=== PATIENT | male | born 1975 ===

== ENCOUNTER 2021-05-30 12:47 | Day surgery (SDC) | payer BC ==
[2021-05-29 08:53] VITALS: BMI 43.5
[~2021-05-30 12:47] MED LIST: ACETAMINOPHEN TAB 500 MG TAB PO PRN; DEXAMETHASONE SOD PHOSPHATE 4 MG/ML 1 ML VIAL IV ONE; HEPARIN SODIUM,PORCINE/PF 5,000 UNIT/0.5 ML SYRINGE SQ PRN; HYDROmorphone 0.5 MG/0.5 ML SYRINGE IVP PRN; LACTATED RINGERS 1,000 ML IV SCH; LIDOCAINE 1% (10MG/ML) FOR IV START INTRADERMA PRN; MIDAZOLAM 2 MG/2 ML VIAL IV PRN; ONDANSETRON 4 MG/2 ML VIAL IVP ONE; Pre Op ABX Message 1 EACH MISC MISCELLANE ONE
--- NOTE | 2021-05-30 14:26 | P.GSHP ---
History of Present Illness H&P Date: 05/30/21 Chief Complaint: Skin lesion anterior chest This is a 45-year-old male who presents today for excision of skin lesion anterior chest. Patient has a 4 x 3 cm skin lesion with chronically inflamed skin which may be related to previous sebaceous cyst of the anterior chest. Past Medical History Additional Past Medical History / Comment(s): skin lesion wall,low testosterone level,low Vit D,states "b/p was running a little high over a year ago now running around 128/80s" History of Any Multi-Drug Resistant Organisms: None Reported Past Surgical History: No Surgical Hx Reported Past Anesthesia/Blood Transfusion Reactions: No Reported Reaction Additional Past Anesthesia/Blood Transfusion Reaction / Comment(s): no hx general anesthesia Smoking Status: Never smoker - Past Family History Father Family Medical History: Coronary Artery Disease (CAD) Additional Family Medical History / Comment(s): CABG and stents Medications and Allergies Home Medications Medication Instructions Recorded Confirmed Type Ascorbic Acid [Vitamin C] 1,000 mg PO DAILY 05/29/21 05/29/21 History Cholecalciferol [Vitamin D3 (25 50 mcg PO DAILY 05/29/21 05/29/21 History Mcg = 1000 Iu)] Testosterone [Androgel 1% Gel 1 dose TOPICAL DAILY 05/29/21 05/30/21 History Packet] Zinc 50 mg PO DAILY 05/29/21 05/29/21 History Allergies Allergy/AdvReac Type Severity Reaction Status Date / Time No Known Allergies Allergy Verified 05/30/21 13:04 Surgical - Exam Vital Signs Temp Pulse Resp BP Pulse Ox 98.6 F 80 16 138/81 99 05/30/21 13:07 05/30/21 13:07 05/30/21 13:07 05/30/21 13:07 05/30/21 13:07 - General well developed, well nourished, no distress - Eyes PERRL - ENT normal pinna - Neck no masses - Respiratory normal expansion - Cardiovascular Rhythm: regular - Abdomen Abdomen: soft, non tender - Integumentary 4 x 3 cm of chronically inflamed skin of the anterior chest wall Assessment and Plan Assessment: Chronically inflamed skin lesion. We'll perform excision.
[2021-05-30] MEDS ORDERED: PROPOFOL 10 MG/ML 20 ML VIAL IV ONE (15:14)
[2021-05-30] MEDS ORDERED: fentaNYL (PF) 50 MCG/ML 2 ML AMP ONE (15:14)
[2021-05-30] MEDS ORDERED: LIDOCAINE 1% INJ 10MG/ML (20 ML MDV) ONE (15:14)
[2021-05-30] MEDS ORDERED: MIDAZOLAM 2 MG/2 ML VIAL ONE (15:14)
[2021-05-30] MEDS ORDERED: LIDOCAINE 2%-EPI 1:100,000 20 ML VIAL SQ ONE (15:45)
--- NOTE | 2021-05-30 15:56 | P.OP ---
Date of Procedure: 05/30/21 Preoperative Diagnosis: Chronically inflamed chest wall skin lesion Postoperative Diagnosis: Defer to pathology Procedure(s) Performed: Excision of chronically inflamed chest wall skin lesion Anesthesia: SASHA Surgeon: Gilberto Connor Estimated Blood Loss (ml): 10 Pathology: other (Chest wall skin lesion) Condition: stable Disposition: PACU Description of Procedure: Patient's placed on the operative table in the supine position. He received general anesthesia his chest was prepped and draped usual sterile fashion. The skin was incised. The lesion appeared to be a chronically inflamed cyst measured approximately 5 cm in diameter. The cyst was then dissected away from the cutaneous tissues. And then in the subcutaneous fat is a 70 cautery. The specimens of pathology. The wound is erythematous. He was achieved using cautery. Fatou closed with interrupted 3-0 nylon sutures. There is a small opening left in the bottom for drainage. Steri-Strips applied. Patient top she will was sent to recovery room stable condition.
[2021-05-30 16:10] VITALS: TEMP 97.5
[2021-05-30 16:24] VITALS: RESP 16
[2021-05-30] MEDS ORDERED: KETOROLAC 15 MG/ML 1 ML VIAL IVP ONE (16:33)
[2021-05-30 17:23] VITALS: BP 138/81; PULSE 83
== END 2021-05-30 17:32 | disposition home or self-care (01) ==
LOC: OR 12:47
PROVIDERS: ATTEND Surgery
DX: L72.0 Epidermal cyst (principal); Z82.49 Family history of ischemic heart disease and other diseases of the circulatory system; Z79.899 Other long term (current) drug therapy; Z95.5 Presence of coronary angioplasty implant and graft
CPT/HCPCS: 88304; 11406; J2250; J1100; J2405; J2001; J3010; J1885; J2704; J1170; J1644

== ENCOUNTER 2021-05-30 19:33 | Emergency (ER) | payer BC ==
[2021-05-30 19:43] VITALS: TEMP 98.1
[2021-05-30] MEDS ORDERED: TRANEXAMIC ACID 1,000 MG in SODIUM CHLORIDE 0.9% 100 ML IVPB ONE (21:15)
[2021-05-30 22:43] VITALS: BP 137/76; PULSE 86; RESP 18
--- NOTE | 2021-05-30 22:53 | ED ---
Wound/Laceration HPI - General Chief Complaint: Wound/Laceration Stated Complaint: Post op bleeding Time Seen by Provider: 05/30/21 20:49 Source: patient Mode of arrival: wheelchair Limitations: no limitations - History of Present Illness Initial Comments: 45 year-old male patient presents for evaluation of bleeding incision. States he had abscess surgically removed from his chest today. Around 7pm this evening he started having blood draining from the wound. States it was dripping down his abdomen and soaked through the dressing so they presented for further evaluation. He denies taking any blood thinning medications. Denies any pain to the area. Denies dizziness or weakness. No other symptoms or concerned. - Related Data Home Medications Medication Instructions Recorded Confirmed Ascorbic Acid [Vitamin C] 1,000 mg PO DAILY 05/29/21 05/29/21 Cholecalciferol [Vitamin D3 (25 50 mcg PO DAILY 05/29/21 05/29/21 Mcg = 1000 Iu)] Testosterone [Androgel 1% Gel 1 dose TOPICAL DAILY 05/29/21 05/30/21 Packet] Zinc 50 mg PO DAILY 05/29/21 05/29/21 Previous Rx's Medication Instructions Recorded Acetaminophen Tab [Tylenol] 650 mg PO Q6H #30 tab 05/30/21 Ibuprofen [Motrin] 600 mg PO Q6HR PRN #40 tab 05/30/21 Allergies Allergy/AdvReac Type Severity Reaction Status Date / Time No Known Allergies Allergy Verified 05/30/21 19:39 Review of Systems ROS Statement: Those systems with pertinent positive or pertinent negative responses have been documented in the HPI. ROS Other: All systems not noted in ROS Statement are negative. Past Medical History Past Medical History: No Reported History Additional Past Medical History / Comment(s): skin lesion wall,low testosterone level,low Vit D,states History of Any Multi-Drug Resistant Organisms: None Reported Past Surgical History: No Surgical Hx Reported Additional Past Surgical History / Comment(s): cyst removed from chest. Past Anesthesia/Blood Transfusion Reactions: No Reported Reaction Additional Past Anesthesia/Blood Transfusion Reaction / Comment(s): no hx general anesthesia Past Psychological History: No Psychological Hx Reported Smoking Status: Never smoker Past Alcohol Use History: Rare Past Drug Use History: None Reported - Past Family History Father Family Medical History: Coronary Artery Disease (CAD) Additional Family Medical History / Comment(s): CABG and stents General Exam Limitations: no limitations General appearance: alert, in no apparent distress, other (This is a well- developed, well-nourished adult male patient in no acute distress. Vital signs upon presentation are temperature 98.1F, pulse 107, respirations 20, blood pressure 147/85, pulse ox 97% on room air.) Respiratory exam: Present: normal lung sounds bilaterally. Absent: respiratory distress, wheezes, rales, rhonchi, stridor Cardiovascular Exam: Present: regular rate, normal rhythm, normal heart sounds. Absent: systolic murmur, diastolic murmur, rubs, gallop, clicks Neurological exam: Present: alert, oriented X3, CN II-XII intact Psychiatric exam: Present: normal affect, normal mood Skin exam: Present: warm, dry, intact, normal color, other (There is a 8 cm incision noted to the central chest with 3 sutures approximating, there is bright red blood oozing from the area. No tenderness.). Absent: rash Course Vital Signs 05/30/21 05/30/21 19:39 22:42 Temperature 98.1 F Pulse Rate 107 H 86 Respiratory 20 18 Rate Blood Pressure 147/85 137/76 O2 Sat by Pulse 97 99 Oximetry Medical Decision Making - Medical Decision Making 45 year-old male patient presents for evaluation of bleeding incision to the chest. Physical exam shows bright red blood oozing from the site. Did soak through two thick dressings while here. He was given IV TXA, bleeding improved. He will be discharged instructed to follow up with his surgeon as soon as possible. Return parameters discussed in detail. He verbalizes understanding and agrees with this plan. Case discussed with my attending Dr. Sanchez. Disposition Clinical Impression: Post-op bleeding Disposition: HOME SELF-CARE Condition: Good Instructions (If sedation given, give patient instructions): Acute Wound Care (ED) Additional Instructions: If bleeding continues apply pressure. Return to the emergency department. Call Dr. Connor in the morning inform him of your visit. Return for any new, worsening, or concerning symptoms. Is patient prescribed a controlled substance at d/c from ED?: No Referrals: Rylan Napier MD [Primary Care Provider] - 1-2 days Time of Disposition: 22:53
== END 2021-05-30 22:58 | disposition home or self-care (01) ==
LOC: EC 19:33
DX: L76.22 Postprocedural hemorrhage of skin and subcutaneous tissue following other procedure (principal); Z82.49 Family history of ischemic heart disease and other diseases of the circulatory system
CPT/HCPCS: 96365; 99283

== ENCOUNTER → 2023-07-21 | Outpatient (CLI) | payer BC ==
--- NOTE | 2023-07-24 12:30 | MR ---
EXAMINATION TYPE: MR shoulder RT wo con DATE OF EXAM: 07/21/2023 COMPARISON: None HISTORY: Right shoulder pain TECHNIQUE: Multiplanar, multisequence imaging of the right shoulder is performed without contrast. FINDINGS: Rotator Cuff: There is a partial through thickness tear involving the anterior fiber insertion of the supraspinatus tendon measuring approximately 6 x 5 mm. Infraspinatus tendon is intact. There appears to be intrasubstance signal compatible with tendinosis of the distal 1 cm of the tendon. Subscapularis tendon demonstrates no evidence of through thickness tear or retraction. Increased sign al at its insertion compatible with tendinosis. Acromioclavicular Joint: Severe hypertrophic arthropathy of the AC joint with mass effect upon the rosario praspinatus tendon muscle compatible with impingement. Spurs are seen extending along the inferior ma rgins of both the clavicle and acromion. There is a small amount of subacromial fluid. Glenohumeral Joint: Mild narrowing of the glenohumeral joint. Inferior glenohumeral ligament is intac t. Trace amount of fluid in the joint space. Labrum: Abnormal signal is seen in the anterior superior labrum compatible with tear. Findings are rosario spicious for SLAP tear. Biceps Tendon: Well situated in the bicipital groove. Tiny amount of fluid surrounds the tendon lior tible with mild tendinosis. Intrasubstance signal is seen along the intracapsular portion of the tend on compatible with tendinopathy. Split tear in the differential diagnosis. Bone marrow signal: Benign cystic change involving the humeral head likely is related to chronic impi ngement. IMPRESSION: 1. Partial through thickness tear anterior fibers of the supraspinatus tendon at its insertion measur ing 6 x 5 mm. 2. Findings compatible with anterior superior labral tear and suspicious for SLAP tear. 3. Moderate tendinosis distal margin\insertion infraspinatus and subscapularis tendons. 4. Increased signal within the intracapsular portion of the biceps tendon compatible with tendinosis. Split tear in the differential diagnosis. 1. 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
--- NOTE | 2023-07-24 12:33 | MR ---
EXAMINATION TYPE: MR knee RT wo con DATE OF EXAM: 07/21/2023 COMPARISON: None HISTORY: Pain right knee TECHNIQUE: Multiplanar, multisequence imaging of the right knee is performed without IV contrast. FINDINGS: MEDIAL MENISCUS: Anterior and posterior horns are intact without tear. LATERAL MENISCUS: Anterior and posterior horns are intact without tear. CRUCIATE LIGAMENTS: The anterior and posterior cruciate ligaments are intact and unremarkable. COLLATERAL LIGAMENTS: The medial collateral ligament and lateral collateral ligament complex are inta ct and unremarkable. EXTENSOR MECHANISM: Visualized quadriceps and patellar tendons are intact. EFFUSION: No significant suprapatellar joint effusion. POPLITEAL CYST: No popliteal/oneal cyst. TRICOMPARTMENT SPACES: Mild narrowing medial tibiofemoral joint space and patellofemoral joint space. CARTILAGE: 3 mm focal cartilaginous defect superior patella pole. Subchondral cystic degenerative sujey nge of the patella. BONE MARROW SIGNAL: No focal abnormal marrow signal is appreciated. OTHER: No additional significant abnormality is appreciated. IMPRESSION: 1. 3 mm focal cartilaginous defect superior patella pole. Subchondral cystic degenerative change of the patella.
== END | disposition home or self-care (01) ==
LOC: RADMRIMAIN 20:45
PROVIDERS: ATTEND Orthopaedic Surgery
DX: M75.111 Incomplete rotator cuff tear or rupture of right shoulder, not specified as traumatic (principal); M67.813 Other specified disorders of tendon, right shoulder; M19.011 Primary osteoarthritis, right shoulder; M17.11 Unilateral primary osteoarthritis, right knee

== ENCOUNTER 2023-10-10 10:09 | Emergency (ER) | payer BC, OTHER ==
[2023-10-10] MEDS ORDERED: LIDOCAINE/EPINEPHR/TETRACAINE 5 ML BOTTLE TOPICAL ONE (10:20)
[2023-10-10 10:27] VITALS: RESP 18; TEMP 97.7
--- NOTE | 2023-10-10 10:45 | ED ---
General Adult HPI - General Chief complaint: Wound/Laceration Stated complaint: Fall, head injury - [facility] Time Seen by Provider: 10/10/23 10:18 Source: patient, RN notes reviewed Mode of arrival: ambulatory Limitations: no limitations - History of Present Illness Initial comments: 47-year-old male with no significant past medical history presents to the emergency department with a chief complaint of scalp laceration. Patient was bending over when he hit his head on a wooden desk anywhere else. He denies loss of consciousness. Denies dizziness, lightheadedness, vision changes or vision, headache, nausea, vomiting. Patient denies anticoagulant use. - Related Data Home Medications Medication Instructions Recorded Confirmed Ascorbic Acid [Vitamin C] 1,000 mg PO DAILY 05/29/21 05/29/21 Cholecalciferol [Vitamin D3 (25 50 mcg PO DAILY 05/29/21 05/29/21 Mcg = 1000 Iu)] Testosterone [Androgel 1% Gel 1 dose TOPICAL DAILY 05/29/21 05/30/21 Packet] Zinc 50 mg PO DAILY 05/29/21 05/29/21 Previous Rx's Medication Instructions Recorded Acetaminophen Tab [Tylenol] 650 mg PO Q6H #30 tab 05/30/21 Ibuprofen [Motrin] 600 mg PO Q6HR PRN #40 tab 05/30/21 Allergies Allergy/AdvReac Type Severity Reaction Status Date / Time No Known Allergies Allergy Verified 10/10/23 10:14 Review of Systems ROS Statement: Those systems with pertinent positive or pertinent negative responses have been documented in the HPI. ROS Other: All systems not noted in ROS Statement are negative. Past Medical History Past Medical History: No Reported History Additional Past Medical History / Comment(s): skin lesion wall,low testosterone level,low Vit D,states History of Any Multi-Drug Resistant Organisms: None Reported Past Surgical History: No Surgical Hx Reported Additional Past Surgical History / Comment(s): cyst removed from chest. Past Anesthesia/Blood Transfusion Reactions: No Reported Reaction Additional Past Anesthesia/Blood Transfusion Reaction / Comment(s): no hx gener al anesthesia Past Psychological History: No Psychological Hx Reported Smoking Status: Never smoker Past Alcohol Use History: Rare Past Drug Use History: None Reported - Past Family History Father Family Medical History: Coronary Artery Disease (CAD) Additional Family Medical History / Comment(s): CABG and stents General Exam - General Exam Comments Initial Comments: General: Alert, in no acute distress Head: atraumatic normocephalic. Eyes PERRL, EOMI intact, mucous membranes moist, right crown area with 4.5 cm laceration Respiratory: Lungs clear to auscultation bilaterally Cardiovascular: rate regular rate and rhythm Abdominal: Soft without guarding or rebound Extremities: Normal inspection with full range of motion and normal capillary refill Neuroogic: alert and oriented 3, CN II-XII intact, able to ambulate with steady gait Skin: warm dry and intact with normal color Limitations: no limitations Course Vital Signs 10/10/23 10/10/23 10:14 11:24 Temperature 97.7 F Pulse Rate 126 H 100 Respiratory 18 18 Rate Blood Pressure 177/110 133/93 O2 Sat by Pulse 97 96 Oximetry Procedures - Laceration Laceration #1 Consent Obtained: verbal consent Indication: laceration Site: scalp (right crown region) Description: linear Depth: simple, single layer Size of Sutures: other (kathryn) Number of Sutures: 8 Complications: pain, bleeding, nerve injury Patient Tolerated Procedure: well, no complications Medical Decision Making - Medical Decision Making Was pt. sent in by a medical professional or institution (Dr. PA, [employer] HEL[employer], urgent care, hospital, or senior care...) When possible be specific @ -[No] Did you speak to anyone other than the patient for history (EMS, parent, family, police, friend...)? What history was obtained from this source @ -[No] Did you review nursing and triage notes (agree or disagree)? Why? @ -[I reviewed and agree with nursing and triage notes] Were old charts reviewed (outside hosp., previous admission, EMS record, old EKG, old radiological studies, urgent care reports/EKG's, senior care records)? Report findings @ -[No old charts were reviewed] Differential Diagnosis (chest pain, altered mental status, abdominal pain women, abdominal pain men, vaginal bleeding, weakness, fever, dyspnea, syncope, headache, dizziness, GI bleed, back pain, seizure, CVA, palpatations, mental health, musculoskeletal)? @ -[not applicable] EKG interpreted by me (3pts min.). @ -[As above] X-rays interpreted by me (1pt min.). @ -[None done] CT interpreted by me (1pt min.). @ -[None done] U/S interpreted by me (1pt. min.). @ -[None done] What testing was considered but not performed or refused? (CT, X-rays, U/S, labs)? Why? @ -[None] What meds were considered but not given or refused? Why? @ -[None] Did you discuss the management of the patient with other professionals (professionals i.e. Dr., PA, [employer] HELPER, lab, RT, psych nurse, social sciences department chair, insurance operations rep, teacher, corporate compliance officer, supportive employment case manager)? Give summary @ -[No] Was smoking cessation discussed for >3mins.? @ -[No] Was critical care preformed (if so, how long)? @ -[No] Were there social determinants of health that impacted care today? How? (Homelessness, low income, unemployed, alcoholism, drug addiction, transportation, low edu. Level, literacy, decrease access to med. care, detention, rehab)? @ -[No] Was there de-escalation of care discussed even if they declined (Discuss DNR or withdrawal of care, Hospice)? DNR status @ -[No] What co-morbidities impacted this encounter? (DM, HTN, Smoking, COPD, CAD, Cancer, CVA, ARF, Chemo, Hep., AIDS, mental health diagnosis, sleep apnea, morbid obesity)? @ -[None] Was patient admitted / discharged? Hospital course, mention meds given and route, prescriptions, significant lab abnormalities, going to OR and other pertinent info. @ Discharged. This is a pleasant 47-year-old male presents to the emergency department with a chief complaint of laceration. Patient had a thorough history and physical exam performed. Physical exam reveals a 4.5 cm laceration to the right scalp region. Patient had 8 kathryn placed which she tolerated well. Return precautions discussed at length. Patient discharged in stable condition. Patient is up-to-date on his tetanus vaccine Case discussed with MELISSA Hernandez who agrees with plan of care Undiagnosed new problem with uncertain prognosis? @ -[No] Drug Therapy requiring intensive monitoring for toxicity (Heparin, Nitro, Insulin, Cardizem)? @ -[No] Were any procedures done? @ -[No] Diagnosis/symptom? @ -Scalp Laceration Acute, or Chronic, or Acute on Chronic? @ -Acute Uncomplicated (without systemic symptoms) or Complicated (systemic symptoms)? @ -Uncomplicated Side effects of treatment? @ -[No] Exacerbation, Progression, or Severe Exacerbation? @ -[No] Poses a threat to life or bodily function? How? (Chest pain, [place], [place], pneumonia, PE, COPD, DKA, ARF, appy, cholecystitis, CVA, Diverticulitis, Homicidal, Suicidal, threat to staff... and all critical care pts) @ -Low likelihood Disposition Clinical Impression: Laceration Disposition: HOME SELF-CARE Condition: Good Instructions (If sedation given, give patient instructions): Laceration (ED), Staple Care (ED) Additional Instructions: Please take Tylenol or Motrin for headache Please return for staple removal in 10-14 days Please return to the nearest emergency department if dizziness, lightheadedness, vision changes or vision loss develop Is patient prescribed a controlled substance at d/c from ED?: No Referrals: Rylan Napier MD [Primary Care Provider] - 1-2 days Time of Disposition: 10:46
[2023-10-10 11:41] VITALS: BP 133/93; PULSE 100
== END 2023-10-10 11:28 | disposition home or self-care (01) ==
LOC: EC 10:09
DX: S01.01XA Laceration without foreign body of scalp, initial encounter (principal); W01.190A Fall on same level from slipping, tripping and stumbling with subsequent striking against furniture, initial encounter
CPT/HCPCS: 12002; 99282